=== PATIENT | male | born 1975 | race African-American/Black ===

== ENCOUNTER → 2019-02-14 | Day surgery (SDC) | payer OTHER, BC ==
[~2019-02-14] MED LIST: ASPIR 8181 MG PO; BRILINTA90 MG PO; CRESTOR10 MG PO; FENTANYL CITRATE/PF 100MCG/2 ML INJ ONE; HYOSCYAMINE SULFATE 0.5 MG/ML INJ ONE; KETAMINE HCL INJ 50 MG/ML 10 ML VIAL ONE; LIDOCAINE HCL 2% LOCAL INJ 5 ML SDV VIAL INJ ONE; MIDAZOLAM HCL 2 MG/2 ML VIAL ONE; PROPOFOL IV EMULSION 10 MG/ML 50 ML VIAL ONE
--- OUTSIDE RECORDS SUMMARY | 2019-02-14 12:50 | XMS REPORT | Summary of Care ---
Author Author [facility] Organization [facility] Address Unknown Phone Unavailable Encounter HQ Encntr_alianiket(FIN) [id number] Date(s): 01/31/19 - 01/31/19 [facility] [address] [place] [address]- [phone] Discharge Disposition: Home or Self Care Attending Physician: Juma Malcolm MD Vital Signs Most recent to 1 oldest [Reference Range]: Height 195.58 cm (01/31/19 9:55 AM) Weight 111.818 kg (01/31/19 9:55 AM) Body Mass Index 29.23 m2 (01/31/19 9:55 AM) Problem List Condition Effective Dates Status Health Status Informant Decreased Resolved libido(Confirmed) 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 Frequency: 1-2 times per week. Smoking Status Never smoker; Exposure to Tobacco Smoke None; Cigarette Smoking Last 365 Days No; Reg Smoking Cessation Counseling No entered on: 01/31/19 Assessment and Plan No data available for this section
--- OUTSIDE RECORDS SUMMARY | 2019-02-14 12:50 | XMS REPORT | Summary of Care ---
Author Author [facility] Organization [facility] Address Unknown Phone Unavailable Encounter HQ Encntr_alias(FIN) [id number] Date(s): 02/11/19 - 02/11/19 [facility] [address] [place] [phone]- [phone] Discharge Disposition: Home or Self Care Attending Physician: Juma Malcolm MD Vital Signs No data available for this section Problem List Condition Effective Dates Status Health Status Informant Decreased Resolved libido(Confirmed) 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
--- OUTSIDE RECORDS SUMMARY | 2019-02-14 12:50 | XMS REPORT | Summary of Care ---
Author Author [facility] Urology [facility] Organization [facility] Address Unknown Phone Unavailable Encounter HQ Encntr_alias(FIN) [id number] Date(s): 02/11/19 - 02/11/19 [facility] [address] [place] [phone]- [phone] Discharge Disposition: Home or Self Care Attending [...]
--- OUTSIDE RECORDS SUMMARY | 2019-02-14 12:50 | XMS REPORT | Summary of Care ---
Author Author [facility] Urology [facility] Organization [facility] Urology [facility] Address Unknown Phone Unavailable Encounter HQ Encntr_alias(FIN) [id number] Date(s): 02/05/19 - 02/05/19 [facility] U[facility] [address] [place] [phone]- [phone] Discharge Disposition: Home or Self Care Vital Signs No data available for this [...] Procedure Date Related Diagnosis Body Site Status Complex uroflowmetry (eg, calibrated 02/05/19 Completed electronic equipment) Measurement of post-voiding residual urine 02/05/19 Completed and/or bladder capacity by ultrasound, non-imaging Operation1 Completed 1repair fractured nose Social History Social History Type Response Alcohol Current, Type Beer, Liquor. Frequency: 1-2 times per week. Smoking Status Never smoker; Exposure to Tobacco Smoke None; Cigarette Smoking Last 365 Days No; Reg Smoking Cessation Counseling No entered on: 01/31/19 Assessment and Plan No data available for this section
--- OUTSIDE RECORDS SUMMARY | 2019-02-14 12:50 | XMS REPORT | Summary of Care ---
Author Author [facility] Organization [facility] Address Unknown Phone Unavailable Encounter HQ Lorraine(FIN) [id number] Date(s): 12/06/18 - 12/07/18 [facility] [address] [place] [address]- Discharge Disposition: Home or Self Care Attending Physician: Stanley Santoro MD Admitting Physician: Stanley Santoro MD Vital Signs 1 2 3 Most recent to oldest [Reference Range]: 195.58 cm (12/06/18 10:01 PM) 195.58 cm (12/06/18 6:01 PM) 195.58 cm (12/06/18 3:50 PM) Height 98.6 DegF (12/07/18 12:12 PM) 98.6 DegF (12/07/18 8:05 AM) 98.2 DegF (12/07/18 4:00 AM) Temperature Oral [96.4-99.1 DegF] 135/90 mmHg (12/07/18 3:30 PM) 123/75 mmHg (12/07/18 2:00 PM) 139/88 mmHg (12/07/18 12:00 PM) Blood Pressure [90-140/60-90 mmHg] 17 BRMIN (12/07/18 3:30 PM) 21 BRMIN *HI* (12/07/18 2:00 PM) 15 BRMIN (12/07/18 12:00 PM) Respiratory Rate [14-20 BRMIN] 66 bpm (12/06/18 3:50 PM) Peripheral Pulse Rate [60-100 bpm] 113.003 kg (12/06/18 10:01 PM) 111.818 kg (12/06/18 6:01 PM) 115 kg (12/06/18 3:50 PM) Weight 29.54 m2 (12/06/18 10:01 PM) 29.23 m2 (12/06/18 6:01 PM) 30.06 m2 (12/06/18 3:50 PM) Body Mass Index Problem List Condition Effective Dates Status Health Status Informant Tumor Active finding(Confirmed) Allergies, Adverse Reactions, Alerts Substance Reaction Severity Status NKDA Active Medications aspirin 81 mg, 1 tab, Route: PO, Drug form: ECTAB, Daily, Dosing Weight 111.818, kg, Sta rt date: 12/07/18 9:00:00 PLASTIC ROLLER, Duration: 30 day, Stop date: 01/05/19 9:00:00 CDT Notes: Do not crush or chew.(Same As: Ecotrin) Start Date: 12/07/18 Stop Date: 12/07/18 Status: Discontinued aspirin 81 mg tablet, enteric coated 81 mg=1 tab, PO, Daily, # 90 tab, 3 Refill(s) Start Date: 12/07/18 Stop Date: 12/02/19 Status: Ordered Brilinta (ticagrelor) 90 mg, 1 tab, Route: PO, Drug form: TAB, BID, Dosing Weight 115, kg, Start date: 12/07/18 9:00:00 PLASTIC ROLLER, Duration: 30 day, Stop date: 01/05/19 17:00:00 CDT Notes: (Same as: Brilinta) Start Date: 12/07/18 Stop Date: 12/07/18 Status: Discontinued Heparin - one time bolus for ACS 4,000 unit, 4 mL, Route: IVP, Drug form: INJ, ONCE, Dosing Weight 115, kg, Prior ity: STAT, Start date: 12/06/18 17:32:00 PLASTIC ROLLER, Stop date: 12/06/18 17:32:00 PLASTIC ROLLER Start Date: 12/06/18 Stop Date: 12/06/18 Status: Completed Heparin 30 unit/kg Bolus (Heparin Dosing Weight) Route: IVP, PRN, 3,000 unit, 3 mL, Drug form: INJ, PRN, Heparin Protocol, Start date: 12/06/18 17:32:00 PLASTIC ROLLER Stop date: 01/05/19 18:31:00 CDT, 30 day Start Date: 12/06/18 Stop Date: 12/06/18 Status: Discontinued Heparin 60 unit/kg Bolus (Heparin Dosing Weight) Route: IVP, PRN, 6,000 unit, 6 mL, Drug form: INJ, PRN, Heparin Protocol, Start date: 12/06/18 17:32:00 PLASTIC ROLLER Stop date: 01/05/19 18:31:00 CDT, 30 day Start Date: 12/06/18 Stop Date: 12/06/18 Status: Discontinued heparin additive 25,000 unit [10 unit/kg/hr] + Premix Diluent Dextrose 5% 500 mL 500 mL, Rate: 19.9 ml/hr, Infuse over: 25.1 hr, Route: IV, Dosing Weight 99.5 kg , Total Volume: 500 mL, Start date: 12/06/18 17:32:00 PLASTIC ROLLER, Duration: 30 day, Sto p date: 01/05/19 17:31:00 CDT, 2.33, m2 Start Date: 12/06/18 Stop Date: 12/06/18 Status: Discontinued Lipitor 80 mg, 2 tab, Route: PO, Drug form: TAB, Daily, Dosing Weight 111.818, kg, Start date: 12/07/18 9:00:00 PLASTIC ROLLER, Duration: 30 day, Stop date: 01/05/19 9:00:00 CDT Notes: (Same as: Lipitor) Start Date: 12/07/18 Stop Date: 12/07/18 Status: Discontinued rosuvastatin 40 mg, 2 tab, Route: PO, Drug form: TAB, Bedtime, Dosing Weight 113.003, kg, Sta rt date: 12/07/18 21:00:00 PLASTIC ROLLER, Duration: 30 day, Stop date: 01/05/19 21:00:00 C DT Notes: Same as Crestor Start Date: 12/07/18 Stop Date: 12/07/18 Status: Canceled rosuvastatin 40 mg oral tablet 40 mg=1 tab, PO, Bedtime, # 90 tab, 3 Refill(s) Start Date: 12/06/18 Stop Date: 03/06/19 Status: Ordered Saline Flush 0.9% 10 mL, Route: IVP, Drug Form: INJ, Dosing Weight 115, kg, PRN, PRN Line Flush, S tart date: 12/06/18 16:00:00 PLASTIC ROLLER, Duration: 30 day, Stop date: 01/05/19 16:59:00 CDT Notes: (Same as: BD Posiflush) Start Date: 12/06/18 Stop Date: 12/07/18 Status: Discontinued ticagrelor 90 mg oral tablet 90 mg=1 tab, PO, BID, # 180 tab, 3 Refill(s) Start Date: 12/07/18 Stop Date: 12/02/19 Status: Ordered Results ELECTROLYTES 1 2 3 Most recent to oldest [Reference Range]: 139 mEq/L (12/06/18 4:02 PM) Sodium Lvl [135-145 mEq/L] 4.0 mEq/L (12/06/18 4:02 PM) Potassium Lvl [3.5-5.1 mEq/L] 106 mEq/L (12/06/18 4:02 PM) Chloride Lvl [95-109 mEq/L] 32 mEq/L (12/06/18 4:02 PM) CO2 [24-32 mEq/L] 5.0 mEq/L *LOW* (12/06/18 4:02 PM) AGAP [10.0-20.0 mEq/L] CHEM PANEL 1 2 3 Most recent to oldest [Reference Range]: 1.16 mg/dL (12/06/18 4:02 PM) Creatinine Lvl [0.50-1.40 mg/dL] 89 mL/min/1.73m2 1 *NA* (12/06/18 4:02 PM) eGFR 13 mg/dL (12/06/18 4:02 PM) BUN [7-22 mg/dL] 11 (12/06/18 4:02 PM) B/C Ratio [6-25] 89 mg/dL (12/06/18 4:02 PM) Glucose Lvl [70-99 mg/dL] 7.9 g/dL (12/06/18 4:02 PM) Total Protein [6.4-8.4 g/dL] 3.8 g/dL (12/06/18 4:02 PM) Albumin Lvl [3.5-5.0 g/dL] 4.1 g/dL (12/06/18 4:02 PM) Globulin [2.7-4.2 g/dL] 0.9 (12/06/18 4:02 PM) A/G Ratio [0.7-1.6] 8.7 mg/dL (12/06/18 4:02 PM) Calcium Lvl [8.5-10.5 mg/dL] 40 unit/L (12/06/18 4:02 PM) ALT [0-65 unit/L] 69 unit/L *HI* (12/06/18 4:02 PM) AST [0-37 unit/L] 85 unit/L (12/06/18 4:02 PM) Alk Phos [39-136 unit/L] 0.7 mg/dL (12/06/18 4:02 PM) Bili Total [0.2-1.3 mg/dL] 102 unit/L (12/06/18 4:02 PM) Lipase Lvl [73-393 unit/L] 1Result Comment: The eGFR is calculated using the CKD-EPI formula. In most young, healthy individuals the eGFR will be >90 mL/min/1.73m2. The eGFR declines with age. An eGFR of 60-89 may be normal in some populations, particularly the elderly, for whom the CKD-EPI formula has not been extensively validated. Use of the eGFR is not recommended in the following populations: Individuals with unstable creatinine concentrations, including patients and those with serious co-morbid conditions. Patients with extremes in muscle mass or diet. The data above are obtained from the National Kidney Disease Education Program ( NKDEP) which additionally recommends that when the eGFR is used in patients with extremes of body mass index for purposes of drug dosing, the eGFR should be mul tiplied by the estimated BMI. CARDIAC ENZYMES 1 2 3 Most recent to oldest [Reference Range]: 7.10 ng/mL 1 *CRIT* (12/06/18 4:02 PM) Troponin-I [0.00-0.40 ng/mL] 1Result Comment: Critical Result(s) called to ann rios RN at 12/06/2018 17:05 by . Read back OK. HEMATOLOGY 1 2 3 Most recent to oldest [Reference Range]: 8.4 K/CMM (12/06/18 5:46 PM) 8.4 K/CMM (12/06/18 5:46 PM) 7.8 K/CMM (12/06/18 4:02 PM) WBC [3.7-10.4 K/CMM] 5.26 M/CMM (12/06/18 5:46 PM) 5.21 M/CMM (12/06/18 5:46 PM) 5.31 M/CMM (12/06/18 4:02 PM) RBC [4.70-6.10 M/CMM] 14.4 g/dL (12/06/18 5:46 PM) 14.2 g/dL (12/06/18 5:46 PM) 14.7 g/dL (12/06/18 4:02 PM) Hgb [14.0-18.0 g/dL] 45.4 % (12/06/18 5:46 PM) 44.6 % (12/06/18 5:46 PM) 45.1 % (12/06/18 4:02 PM) Hct [42.0-54.0 %] 86.3 fL (12/06/18 5:46 PM) 85.6 fL (12/06/18 5:46 PM) 84.9 fL (12/06/18 4:02 PM) MCV [80.0-94.0 fL] 27.3 pg (12/06/18 5:46 PM) 27.3 pg (12/06/18 5:46 PM) 27.7 pg (12/06/18 4:02 PM) MCH [27.0-31.0 pg] 31.7 g/dL *LOW* (12/06/18 5:46 PM) 31.9 g/dL *LOW* (12/06/18 5:46 PM) 32.7 g/dL (12/06/18 4:02 PM) MCHC [32.0-36.0 g/dL] 13.5 % (12/06/18 5:46 PM) 13.6 % (12/06/18 5:46 PM) 13.5 % (12/06/18 4:02 PM) RDW [11.5-14.5 %] 9.3 fL (12/06/18 5:46 PM) 9.5 fL (12/06/18 5:46 PM) 9.5 fL (12/06/18 4:02 PM) MPV [7.4-10.4 fL] 158 K/CMM (12/06/18 5:46 PM) 163 K/CMM (12/06/18 5:46 PM) 171 K/CMM (12/06/18 4:02 PM) Platelet [133-450 K/CMM] 69.4 % (12/06/18 5:46 PM) 69.2 % (12/06/18 5:46 PM) 64.2 % (12/06/18 4:02 PM) Segs [45.0-75.0 %] 21.5 % (12/06/18 5:46 PM) 21.3 % (12/06/18 5:46 PM) 26.2 % (12/06/18 4:02 PM) Lymphocytes [20.0-40.0 %] 6.8 % (12/06/18 5:46 PM) 7.1 % (12/06/18 5:46 PM) 7.2 % (12/06/18 4:02 PM) Monocytes [2.0-12.0 %] 1.9 % (12/06/18 5:46 PM) 1.7 % (12/06/18 5:46 PM) 1.9 % (12/06/18 4:02 PM) Eosinophils [0.0-4.0 %] 0.4 % (12/06/18 5:46 PM) 0.7 % (12/06/18 5:46 PM) 0.5 % (12/06/18 4:02 PM) Basophils [0.0-1.0 %] 5.8 K/CMM (12/06/18 5:46 PM) 5.8 K/CMM (12/06/18 5:46 PM) 5.0 K/CMM (12/06/18 4:02 PM) Neutrophils # [1.5-8.1 K/CMM] 1.8 K/CMM (12/06/18 5:46 PM) 1.8 K/CMM (12/06/18 5:46 PM) 2.0 K/CMM (12/06/18 4:02 PM) Lymphocytes # [1.0-5.5 K/CMM] 0.6 K/CMM (12/06/18 5:46 PM) 0.6 K/CMM (12/06/18 5:46 PM) 0.6 K/CMM (12/06/18 4:02 PM) Monocytes # [0.0-0.8 K/CMM] 0.2 K/CMM (12/06/18 5:46 PM) 0.1 K/CMM (12/06/18 5:46 PM) 0.1 K/CMM (12/06/18 4:02 PM) Eosinophils # [0.0-0.5 K/CMM] 0.1 K/CMM (12/06/18 5:46 PM) Basophils # [0.0-0.2 K/CMM] 14.2 seconds (12/06/18 5:46 PM) PT [12.0-14.7 seconds] 1.12 (12/06/18 5:46 PM) INR [0.85-1.17] 28.1 seconds (12/06/18 5:46 PM) PTT [22.9-35.8 seconds] Immunizations Not Given Vaccine Date Status Refusal [...] Reg Smoking Cessation Counseling No entered on: 12/06/18 Assessment and Plan Extracted from: Title: Progress Note * Author: Cornel España MD Date: 12/07/18 Impression and Plan 1. NSTEMI -continue aspiring, ticagrelor, rosuvastatin -no beta alcides due to bradycardia, EF preserved so no DAVID needed Extracted from: Title: Clinical Document Author: Stanley Santoro MD Date: 12/07/18 Name: RM: 357 - 1P, SE [id number] (: 1975) M Admission Date: 12/06/2018 Discharge Date: 12/07/2018 Diagnoses: DIAGNOSES & PROBLEMS 1. Acute myocardial infarction. Non-STEMI 2. Chest pain. 3. Hyperlipidemia. 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 Progress Note - Daily [facility] Completed: Nov, 16:00 by Stanley Santoro MD RM: 357 - 1P, SE BRAD [id number] (: 1975) M Attending: Stanley Santoro MDPhone: Service: Internal Medicine Reason for Admission: NSTEMI, ACUTE CHEST PAIN, LIGHTHEADNESS Working DRG: Code status: None Specified=FULL CODECurrent diet: Isolation: No Isolation/Standard Precautions Allergies: NKDA SUBJECTIVE Doing better ,no chest pain or sob,no nause or vomiting, no neurologic symptoms OBJECTIVE 24hr Labs 12/06 1746 WBC8.4 RBC5.26 Hgb14.4 Hct45.4 MCV86.3 MCH27.3 MCHC31.7 L RDW13.5 Zmkevfjt481 MPV9.3 Segs69.2 Monocytes7.1 Vmlkargjghm41.3 Eosinophils1.7 Basophils0.7 Neutrophils #5.8 Lymphocytes #1.8 Monocytes #0.6 Eosinophils #0.1 Basophils #0.1 WBC8.4 RBC5.21 Hgb14.2 Hct44.6 MCV85.6 MCH27.3 MCHC31.9 L RDW13.6 Gvchbdij903 MPV9.5 Segs69.4 Monocytes6.8 Qirmcektbnt43.5 Eosinophils1.9 Basophils0.4 Neutrophils #5.8 Lymphocytes #1.8 Monocytes #0.6 Eosinophils #0.2 PT14.2 INR1.12 PTT28.1 12/06 1602 Sodium Mik416 Potassium Lvl4.0 Chloride Qqk373 CO232 AGAP5.0 L Glucose Lvl89 Creatinine Lvl1.16 BUN13 B/C Ratio11 Total Protein7.9 Albumin Lvl3.8 Globulin4.1 A/G Ratio0.9 Calcium Lvl8.7 ALT40 AST69 H Alk Phos85 Bili Total0.7 eGFR89 Lipase Fli468 Troponin-I7.10 C WBC7.8 RBC5.31 Hgb14.7 Hct45.1 MCV84.9 MCH27.7 MCHC32.7 RDW13.5 Jfkmtaly037 MPV9.5 Segs64.2 Monocytes7.2 Jckouzrsgkc95.2 Eosinophils1.9 Basophils0.5 Neutrophils #5.0 Lymphocytes #2.0 Monocytes #0.6 Eosinophils #0.1 Levy still necessary (Yes/No): Line still necessary (Yes/No): VitalsTmp(F)[id number] 12/07 14:00----[id number]--- 12/07 12:1298.6 12/07 12:00----[id number]--- 12/07 10:00----[id number]--- 12/07 08:0598.804370/[id number]--- 24 Hr Tmax: 98.6F (37.00c) at 12/07 12:12Vital Signs are the last 5 in the past 48 hours. DateWt(kg)Wt(lb)Ht(cm)Ht(in)Method 12/06 (initial)115.00 253.00Estimated 12/06195.58 77.00Stated I&ORecordInOutBal 12/823hr Tot 0 0 0 12/723hr Tot 0 650 -650 Medications (5) Active Scheduled Meds (3): 12/07/18 aspirin 81 mg PO Daily 12/07/18 rosuvastatin 40 mg PO Bedtime 12/07/18 ticagrelor (Brilinta (ticagrelor)) 90 mg PO BID Unscheduled Meds: None PRN Meds (1): 12/06/18 sodium chloride (Saline Flush 0.9%) 10 mL IVP PRN One Time Meds (1): 12/06/18 (not done) heparin (Heparin - one time bolus for ACS) 4,000 unit IVP ONCE Continuous Infusions: None ASSESSMENT & EXAM GENERAL Alert and oriented x 3. no obvious distress HEENT: PERRLA. EOMI. Normocephalic, Atraumatic NECK: No jugular venous distention, no bruit. Thyroid is normal. LUNGS: Clear to auscultation and percussion. HEART: RRR. S1, S2 is normal. ABDOMEN: Positive bowel sounds, no organomegaly. No tenderness appreciated EXTREMITIES: No tenderness. Lower limbs, no edema and no cyanosis. NEUROLOGIC: Grossly intact sensory and motor. SKIN: no rashes noted PLAN & TREATMENT d/c home DIAGNOSES & PROBLEMS Ready for Discharge (Yes/No)? TEACHING ATTESTATION Extracted from: Title: Cardiac Catheterization Note Author: Cornel España MD Date: 12/06/18 Cardiology Catheterization Report Attending: Stanley Santoro MDPhone: Service: Internal Medicine Code status: None Specified=FULL CODE Reason for Admission: NSTEMI, ACUTE CHEST PAIN, LIGHTHEADNESS Working DRG: Isolation: No Isolation/Standard Precautions Consulting Physicians: Stanley Santoro MDOffice: Service: Medicine, General Medicine Cornel España MDOffice: Service: Cardiology Indications: NSTEMI Pre-sedation Assessment: Medical history, social history and previous experience with anesthesia was reviewed as documented in the preoperative medical record. Results of relevant diagnostic studies reviewed. Planned choice of anesthesia, risks, complications, benefits, and alternatives discussed. Patient deemed appropriate candidate for planned choice of anesthesia. Consent: The benefits, risks, complications and alternatives to the procedure were discussed with patient and informed consent was obtained from patient or their surrogate. Medications: Please see nursing notes for medications administered during the procedure. Procedure: Patient was brought to the cardiac catheterization laboratory in a fasting state. RIGHT wrist was prepped and draped in a sterile fashion. 1% lidocaine was used to infiltrate the right wrist over the radial artery. A 5 Fr sheath was placed in the right radial artery using the Seldinger technique. Coronary angiography was performed using a GTI preformed catheter to engage both the RCA and LCA. Multiple orthogonal views were obtained of each coronary artery. Left heart catheterization was performed using a GTI catheter. All catheters were removed over a guide wire. The access site was closed using TR band. The case ended without any complications. Estimated blood loss approximately 20 mL. Findings: LMCA: Large caliber. Normal. LAD: Large vessel. Goes to the apex. Proximal LAD with significant ectasia and slow flow. No obstructive lesions. No thrombus. LCX: Large, non dominant vessel. 1 significant OM branches. No significant coronary artery disease. RCA: Large dominant RCA. Medium sized rPDA and rPL systems. Ectasia in proximal and mid RCA with slow flow. There may be a small thrombus in distal rPL branch. LVEDP: 14 Complications: None Specimen Removed: None Implants: None Estimated Blood Loss: 20 mL. Recommendations: 1. usual post PCI care until TR band removal. 2. continue optimal medical therapy and risk factor control. 3. call the office for follow up in 2 weeks post procedure. Extracted from: Title: Cardiology History and Author: Cornel España MD Date: 12/06/18 Physical [facility] History and Physical Note Attending: Aniket Hope MDPhone: Service: Emergency Medicine Code status: None Specified=FULL CODE Reason for Admission: ABNORMAL LABS Working DRG: Isolation: None Documented Consulting Physicians: Cornel España MDOffice: Service: Cardiology Chief Complaint: chest pain HPI: 43 yo with family hx of CAD but otherwise healthy. He presents with feeling "elephant sitting on his chest" starting Monday night, had episodes on monday as well. Last episode this morning. Currently chest discomfort free. Review of Systems: 10 point review of system was performed and was negative other than mentioned in HPI. Past Medical History: No qualifying data available Family History: Father: Heart attack; High blood pressure; Stroke Social History: Alcohol Details: Current, Type Beer, Liquor. Frequency: 1-2 times per week. Tobacco Details: Use: Never smoker. Tobacco smoke exposure: None. Did the Patient Smoke Cigarettes Anytime During the Last 365 Days? No. Cessation Counseling Provided? No. Exam: VitalsTmp(F)[id number] 12/06 17:20----[id number]--- 12/06 15:[id number]--- 24 Hr Tmax: 98.1F (36.72c) at 12/06 15:50Vital Signs are the last 5 in the past 48 hours. DateWt(kg)Wt(lb)Ht(cm)Ht(in)Method 12/06 (initial)115.00 253.00Estimated 12/06195.58 77.00Stated No I & O Data Available Eyes: conjunctivae clear. ENMT: normal mucosa. No pallor or bleeding. Neck: No jugular venous distention. MSK: Normal muscle tone and strength. No atrophy or abnormal movements. Extremities: No clubbing or cyanosis. Skin: No venous stasis changes or ulcers. General: well developed. well nourished. obese. Cardiovascular: PMI non displaced. regular. S1 and S2. No murmurs, rubs or gallops. Normal carotid pulses. Palpable femoral pulses. Palpable pedal pulses. No peripheral edema or varicosities. Respiratory: No respiratory distress. Clear to auscultation bilaterally. Abdomen: soft, non-tender, no masses. No hepato- or splenomegaly. Neuro/Psych: Alert and oriented to person, place and time. Normal affect. Allergies: NKDA Medications (6) Active Scheduled Meds (1): 12/07/18 ticagrelor (Brilinta (ticagrelor)) 180 mg PO BID Unscheduled Meds: None PRN Meds (3): 12/06/18 heparin (Heparin 60 unit/kg Bolus (Heparin Dosing Weight)) 6,000 unit IVP PRN 12/06/18 heparin (Heparin 30 unit/kg Bolus (Heparin Dosing Weight)) 3,000 unit IVP PRN 12/06/18 sodium chloride (Saline Flush 0.9%) 10 mL IVP PRN One Time Meds (1): 12/06/18 (Ordered) heparin (Heparin - one time bolus for ACS) 4,000 unit IVP ONCE Continuous Infusions (1): 12/06/18 heparin 25,000 unit [10 unit/kg/hr] + Premix Diluent Dextrose 5% 500 mL (heparin additive 25,000 unit [10 unit/kg/hr] + Premix Diluent Dextrose 5% 500 mL) 500 mL 19.9 ml/hr Labs (Last four charted values) WBC 7.8(DEC 06) Hgb 14.7(DEC 06) Hct 45.1(DEC 06) Plt 171(DEC 06) Na 139(DEC 06) K 4.0(DEC 06) CO2 32(DEC 06) Cl 106(DEC 06) Cr 1.16(DEC 06) BUN 13(DEC 06) Glucose Random 89(DEC 06) Ca 8.7(DEC 06) Troponin C 7.10(DEC 06) Imaging: Reviewed. Telemetry: NSR. ECG: NSR. Anterolateral ST-T changes concerning for LAD ischemia. Echo: none Stress: none Cath: none Assessment: Chest pain, unspecified (R07.9) Dizziness and giddiness (R42) Non-ST elevation (NSTEMI) myocardial infarction (I21.4) Plan: -high risk ACS, Wellen's on ECG concerning for LAD ischemia -asa, heparin, ticagrelor, atorvastatin -proceed with urgent coronary angiography
--- OUTSIDE RECORDS SUMMARY | 2019-02-14 12:50 | XMS REPORT | CCD ---
Author Author Auto Generated Organization [facility] Address Unknown Phone Unavailable Care Team Providers Care Admin Prog Coord Name Role Phone Abe Chavez CP Allergies, Adverse Reactions, Alerts Substance Reaction Status NKDA Active Medications Medication Instructions Start Date End Date Status morphine Sulfate 2 mg, 1 mL, Route: IV, Drug form: 09/19/2012 09/19/2012 Discontinued INJ, Q2H, PRN Pain, Start date: 09/19/12 0:31:00, Duration: 30 day, Stop date: 10/19/12 0:30:00 atropine 0.5 mg, 5 mL, Route: IVP, Drug 09/19/2012 09/19/2012 Discontinued form: INJ, PRN, PRN Bradycardia, Start date: 09/19/12 0:30:00, Duration: 30 day, Stop date: 10/19/12 0:29:00 Lovenox 100 mg, 1 mL, Route: SUB-Q, Drug 09/18/2012 09/18/2012 Completed form: INJ, ONCE, Dosing Weight 104.545, kg, Priority: STAT, Start date: 09/18/12 23:44:00, Stop date: 09/18/12 23:44:00 nitroglycerin 0.4 mg, 1 tab, Route: SL, Drug 09/18/2012 09/19/2012 Discontinued form: TAB, Q5Min, Dosing Weight 104.545, kg, PRN Chest Pain, (Hold if SBP <=90 mmHg or if <=100mmHg with symptomatic dizziness), Start date: 09/18/12 20:24:00, Duration: 3 doses or times, Stop date: Limited # of times aspirin 325 mg 325 mg, 1 tab, Route: PO, Drug 09/18/2012 09/18/2012 Completed tablet form: TAB, ONCE, Dosing Weight 104.545, kg, Priority: STAT, Start date: 09/18/12 20:24:00, Stop date: 09/18/12 20:24:00 Saline Flush 0.9% 5 ml, Route: IVP, Drug Form: INJ, 09/18/2012 09/19/2012 Discontinued Dosing Weight 104.545, kg, PRN, PRN Line Flush, Start date: 09/18/12 20:24:00, Duration: 24 hr, Stop date: 09/19/12 20:23:00 Vital Signs Most recent to oldest [Reference Range]: 1 2 3 Height 195.58 cm (09/18/2012 20:05:00) Temperature Oral [96.4-99.1 DegF] 98.1 DegF (09/19/2012 12:00:00) 97.8 DegF (09/19/2012 08:00:00) 97.7 DegF (09/19/2012 04:00:00) Systolic Blood Pressure [90-140 mmHg] 119 mmHg (09/19/2012 12:00:00) 121 mmHg (09/19/2012 08:00:00) 117 mmHg (09/19/2012 04:00:00) Diastolic Blood Pressure [60-90 mmHg] 79 mmHg (09/19/2012 12:00:00) 78 mmHg (09/19/2012 08:00:00) 67 mmHg (09/19/2012 04:00:00) Respiratory Rate [14-20 BRMIN] 20 BRMIN (09/19/2012 12:00:00) 8 BRMIN *LOW* (09/19/2012 08:55:00) 20 BRMIN (09/19/2012 08:00:00) Peripheral Pulse Rate [60-100 bpm] 62 bpm (09/19/2012 12:00:00) 60 bpm (09/19/2012 08:00:00) 62 bpm (09/19/2012 04:00:00) Weight 104.545 kg (09/18/2012 20:05:00) Results CHEMISTRY Most recent to oldest [Reference Range]: 1 2 3 Sodium Lvl [135-145 mEq/L] 143 mEq/L (09/18/2012 20:52:00) Potassium Lvl [3.5-5.1 mEq/L] 4.1 mEq/L (09/18/2012:52:00) Chloride Lvl [95-109 mEq/L] 104 mEq/L (09/18/2012:52:00) CO2 [24-32 mEq/L] 31 mEq/L (09/18/2012:52:00) AGAP [10.0-20.0 mEq/L] 12.1 mEq/L (09/18/2012:52:00) Creatinine Lvl [0.5-1.4 mg/dL] 1.0 mg/dL (09/18/2012:52:00) eGFR 111 mL/min/1.73m2 1 *NA* (09/18/2012:52:00) BUN [7-22 mg/dL] 16 mg/dL (09/18/2012:52:00) B/C Ratio [6-25] 16 (09/18/2012:52:00) Glucose Lvl [70-99 mg/dL] 95 mg/dL 2 (09/18/2012:52:00) Total Protein [6.4-8.4 g/dL] 8.0 g/dL (09/18/2012:52:00) Albumin Lvl [3.5-5.0 g/dL] 4.0 g/dL (09/18/2012:52:00) Globulin [2.0-4.0 g/dL] 4.0 g/dL (09/18/2012:52:00) A/G Ratio [0.7-1.6] 1.0 (09/18/2012:52:00) Calcium Lvl [8.5-10.5 mg/dL] 9.0 mg/dL (09/18/2012:52:00) ALT [0-65 unit/L] 57 unit/L (09/18/2012:52:00) AST [0-37 unit/L] 31 unit/L (09/18/2012:52:00) Alk Phos [39-136 unit/L] 87 unit/L (09/18/2012:52:00) Bili Total [0.2-1.3 mg/dL] 0.5 mg/dL (09/18/2012:52:00) Total CK [12-191 unit/L] 181 unit/L (09/19/2012 10:38:00) 185 unit/L (09/19/2012 03:33:00) 224 unit/L *HI* (09/18/2012 20:52:00) CK MB [0.5-3.6 ng/mL] 0.5 ng/mL (09/19/2012 10:38:00) 0.7 ng/mL (09/19/2012 03:33:00) <0.5 ng/mL (09/18/2012 20:52:00) CK MB Index [0.0-2.5] 0.3 (09/19/2012 10:38:00) 0.4 (09/19/2012 03:33:00) <0.2 (09/18/2012 20:52:00) Troponin-I [0.00-0.40 ng/mL] <0.02 ng/mL (09/19/2012 10:38:00) <0.02 ng/mL (09/19/2012 03:33:00) 0.02 ng/mL (09/18/2012 20:52:00) CHD Risk [4.00-7.30] 10.35 *HI* (09/19/2012 10:38:00) Chol [120-200 mg/dL] 352 mg/dL *HI* (09/19/2012 10:38:00) Trig [0-200 mg/dL] 100 mg/dL (09/19/2012 10:38:00) HDL [>=35 mg/dL] 34 mg/dL *LOW* (09/19/2012 10:38:00) LDL [0-129 mg/dL] 298 mg/dL *HI* (09/19/2012 10:38:00) 1Result Comment: The eGFR is calculated using [...] be mul tiplied by the estimated BMI. 2Interpretive Data: Adult reference range values reflect the clinical guidelines of the [place] [employer]. HEMATOLOGY Most recent to oldest [Reference Range]: 1 2 3 WBC [3.7-10.4 K/CMM] 7.1 K/CMM (09/18/2012 20:52:00) RBC [4.70-6.10 M/CMM] 5.50 M/CMM (09/18/2012 20:52:00) Hgb [14.0-18.0 g/dL] 15.3 g/dL (09/18/2012:52:00) Hct [42.0-54.0 %] 46.6 % (09/18/2012 20:52:00) MCV [80.0-94.0 fL] 84.8 fL (09/18/2012:52:00) MCH [27.0-31.0 pg] 27.9 pg (09/18/2012 20:52:00) MCHC [32.0-36.0 g/dL] 32.9 g/dL (09/18/2012:52:00) RDW [11.5-14.5 %] 13.0 % (09/18/2012 20:52:00) Platelet [133-450 K/CMM] 186 K/CMM (09/18/2012 20:52:00) MPV [7.4-10.4 fL] 9.0 fL (09/18/2012 20:52:00) Segs [45.0-75.0 %] 56.3 % (09/18/2012 20:52:00) Lymphocytes [20.0-40.0 %] 33.1 % (09/18/2012:52:00) Monocytes [2.0-12.0 %] 5.5 % (09/18/2012 20:52:00) Eosinophils [0.0-4.0 %] 4.7 % *HI* (09/18/2012:52:00) Basophils [0.0-1.0 %] 0.4 % (09/18/2012 20:52:00) Segs-Bands # [1.5-8.1 K/CMM] 4.0 K/CMM (09/18/2012 20:52:00) Lymphocytes # [1.0-5.5 K/CMM] 2.3 K/CMM (09/18/2012 20:52:00) Monocytes # [0.0-0.8 K/CMM] 0.4 K/CMM (09/18/2012 20:52:00) Eosinophils # [0.0-0.5 K/CMM] 0.3 K/CMM (09/18/2012 20:52:00) Basophils # [0.0-0.2 K/CMM] 0.0 K/CMM (09/18/2012 20:52:00) PT [12.0-14.7 seconds] 13.7 seconds (09/18/2012 20:52:00) INR [0.85-1.17] 1.03 3 (09/18/2012 20:52:00) D-Dimer 0.26 ug/mL FEU 4 *NA* (09/18/2012 20:52:00) PTT [22.9-35.8 seconds] 30.2 seconds 5 (09/18/2012 20:52:00) 3Interpretive Data: RECOMMENDED RANGES FOR PROTIME INR: 2.0-3.0 for most medical and surgical thromboembolic states. 2.5-3.5 for artificial heart valves and recurrent embolism. INR SHOULD BE USED ONLY FOR PATIENTS ON STABLE ANTICOAGULANT THERAPY. 4Interpretive Data: In DIC, quantitative D-Dimer is generally greater than 0.66 ug/mL FEU. Values of quantitative D-Dimer less than 0.40 ug/mL FEU have been reported to be associated with a low probability of deep vein thrombosis/pulmonary embolism. This test alone should not be used to rule out DVT/PE. 5Interpretive Data: Heparin Therapeutic Range: 57 - 92 Seconds
--- OUTSIDE RECORDS SUMMARY | 2019-02-14 12:51 | XMS REPORT ---
Author Author Smith Carr [employer] Address Unknown Phone Unavailable Care Team Providers Care Leadership Coach Name Role Phone Smith Carr CP Unavailable Allergies, Adverse Reactions, Alerts Substance Reaction Event Type N.K.D.A. Info Not Available Non Drug Allergy Problems Problem Type Condition Code Onset Dates Condition Status Assessment Erectile dysfunction N52.9 Active Assessment Routine physical examination Z00.00 Active Assessment Hypogonadism in male E29.1 Active Problem Impaired left ventricular relaxation I51.9 Active Problem Familial hypercholesterolemia E78.01 Active Problem LVH (left ventricular hypertrophy) I51.7 Active Problem Erectile dysfunction N52.9 Active Problem Hypogonadism in male E29.1 Active Problem Hypoglycemia E16.2 Active Problem Onychomycosis B35.1 Active Assessment LVH (left ventricular hypertrophy) I51.7 Active Assessment Familial hypercholesterolemia E78.01 Active Assessment Abnormal ECG R94.31 Active Assessment Screening for prostate cancer Z12.5 Active Assessment Herpes simplex B00.9 Active Assessment Hypoglycemia E16.2 Active Medications Medication Code System Code Instructions Start Date End Date Status Dosage Needle (Disp) NDC 0 18G X 1" intramuscularly every 2 weeks May 21, 2018 Active use to draw testosterone Rosuvastatin Calcium ND 50786388480 40 mg Orally qd LAST REFILL May 17, 2018 Active 1 tablet Testosterone Cypionate ND 92599582398 200 MG/ML Intramuscular every two weeks Nov 12, 2015 Active 1 ml Ezetimibe [facility] 41792543438 10 mg Orally Once a day Jun 28, 2017 Active 1 tablet Syringe ND 58134971365 22G X 1-1/2 intramuscularly every two weeks to give testosterone Nov 12, 2015 Active use to give testosterone injection Valtrex ND 41486499835 500 mg Orally three times a day (tid) May 18, 2018 May 28, 2018 Active 1 tablet Needle (Disp) ND 59322737954 20G X 1 intramuscularly every two weeks to draw testosterone Nov 12, 2015 Active as directed Vital Signs Date/Time: May 18, 2018 BMI 27.63 Index Weight 227 lbs Height 76 in Temperature 98.1 F Cardiac Monitoring Heart Rate 69 /min Blood Pressure Diastolic 92 mm Hg Blood Pressure Systolic 124 mm Hg Results No Known Results Summary Purpose eClinicalWorks Submission
--- OUTSIDE RECORDS SUMMARY | 2019-02-14 12:51 | XMS REPORT ---
Author Author Geeta Romero Organization [employer] Address Unknown Phone Unavailable Care Team Providers Care Commercial Management Accountant Name Role Phone Geeta Romero CP Unavailable Allergies, Adverse Reactions, Alerts Substance Reaction Event Type N.K.D.A. Info Not Available Non Drug Allergy Problems Problem Type Condition Code Onset Dates Condition Status Assessment Familial hypercholesterolemia E78.01 Active Assessment Hypogonadism in male E29.1 Active Assessment Erectile dysfunction N52.9 Active Problem LVH (left ventricular hypertrophy) I51.7 Active Problem Impaired left ventricular relaxation I51.9 Active Problem Familial hypercholesterolemia E78.01 Active Problem Hypogonadism in male E29.1 Active Problem Erectile dysfunction N52.9 Active Problem Hypoglycemia E16.2 Active Problem Onychomycosis B35.1 Active Assessment Impaired left ventricular relaxation I51.9 Active Assessment LVH (left ventricular hypertrophy) I51.7 Active Assessment Elevated blood pressure reading R03.0 Active Medications Medication Code System Code Instructions Start Date End Date Status Dosage Needle (Disp) [facility] 8080-998790 20G X 1 intramuscularly every two weeks to draw testosterone Nov 12, 2015 Active as directed Testosterone Cypionate [facility] [address]-67 200 MG/ML Intramuscular every two weeks Nov 12, 2015 Active 1 ml Syringe [facility] 8287-847462 22G X 1-1/2 intramuscularly every two weeks to give testosterone Nov 12, 2015 Active as directed Pravastatin Sodium [facility] [address]-60 40 MG Orally Once a day(MUST SEE BEFORE NEXT REFILL) Jun 19, 2017 Active 1 tablet Sildenafil Citrate [facility] [address]-03 50 MG Orally Once a day Jun 23, 2017 Jul 23, 2017 Active 1 tablet as needed Vital Signs Date/Time: Jun 23, 2017 BMI 29.70 Index Weight 244 lbs Height 76 in Cardiac Monitoring Heart Rate 66 /min Blood Pressure Diastolic 88 mm Hg Blood Pressure Systolic 134 mm Hg Results No Known Results Summary Purpose eClinicalWorks Submission
--- OUTSIDE RECORDS SUMMARY | 2019-02-14 12:51 | XMS REPORT ---
Author Author Keyla Bauer [facility] [employer] Address Unknown Phone Unavailable Care Team Providers Care Discharge Planner Name Role Phone Keyla Bauer Unavailable Encounters Encounter Location Date [address] [facility] February 24, [address] [facility] March 02, [address] [facility] March 03, [address] [facility] March 03, [address] [facility] Nov 13, [address] [facility] Nov 12, [address] 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 2 February 24, 2016 Last Colonoscopy: . never February 24, 2016 Tobacco Use: . Are you a: never smoker February 24, 2016 Flu Vaccine: . 2013February 24, 2016 Use of recreational / street drugs? . Answer: No February 24, 2016 Do you have pets? . Status: Yes, Type: dog(s) February 24, 2016 Ethnicity . Status , Is bolivian your primary language? Yes February 24, 2016 Marital Status: . Keeley Leal February 24, 2016 Caffeine intake? . Status: No February 24, 2016 Do you exercise? . Answer: Yes, Type: cardio, running basketball February 24, 2016 Depression Screening: . negative February 24, 2016 Do you drink alcohol? . Status: Yes, Type: Socially February 24, 2016 Summary Purpose eClinicalWorks Submission
--- OUTSIDE RECORDS SUMMARY | 2019-02-14 12:51 | XMS REPORT ---
Author Author Sarah Beth Prieto [facility] [employer] Address Unknown Phone Unavailable Care Team Providers Care Metal Tile Lather Name Role Phone Sarah Beth Prieto CP Unavailable Encounters Encounter Location Date 3 MONTH FOLLOW UP [facility] February 24, 2016 Unknown [facility] March 02, 2016 Unknown [facility] Nov 13, 2015 fu on labs [facility] Nov 12, 2015 [place] [facility] Nov 13, 2015 Problems Problem Type Condition ICD-9 Code Onset Dates Condition Status Assessment Hypogonadism in male E29.1 Active Problem Hyperlipidemia E78.5 Active Problem Onychomycosis B35.1 Active Problem Elevated liver enzymes R74.8 Active Problem Hypoglycemia 251.2 Active Problem Elevated ALT measurement 790.4 Active Problem Hypogonadism in male E29.1 Active Problem Erectile dysfunction N52.9 Active Social History Social History Element Qualifiers Date Reported 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 2 February 24, 2016 Last Colonoscopy: . never February 24, 2016 Tobacco Use: . Are you a: never smoker February 24, 2016 Flu Vaccine: . 2014 February 24, 2016 Use of recreational / street drugs? . Answer: No February 24, 2016 Do you have pets? . Status: Yes, Type: dog(s) February 24, 2016 Ethnicity . Status , Is kiswahili your primary language? Yes February 24, 2016 [...]
--- OUTSIDE RECORDS SUMMARY | 2019-02-14 12:51 | XMS REPORT ---
Author Author Geeta Romero [facility] eClinicalWorks Address Unknown Phone Unavailable Care Team Providers Care Business Representative Name Role Phone Geeta Romero CP Unavailable Allergies No Known Allergies Problems Problem Type Condition Code Onset Dates Condition Status Problem Impaired left ventricular relaxation I51.9 Active Problem Familial hypercholesterolemia E78.01 Active Problem LVH (left ventricular hypertrophy) I51.7 Active Problem Erectile dysfunction N52.9 Active Problem Hypogonadism in male E29.1 Active Problem Hypoglycemia E16.2 Active Problem Onychomycosis B35.1 Active Medications No Known Medications Results No Known Results Summary Purpose eClinicalWorks Submission
--- OUTSIDE RECORDS SUMMARY | 2019-02-14 12:51 | XMS REPORT ---
Author Author Geeta Romero Organization [employer] Address Unknown Phone Unavailable Care Team Providers Care Systems Test Engineer Name Role Phone Geeta Romero CP Unavailable Allergies No Known Allergies Problems Problem Type Condition Code Onset Dates Condition Status Assessment Familial hypercholesterolemia E78.01 Active Problem Impaired left ventricular relaxation I51.9 Active Problem Familial hypercholesterolemia E78.01 Active Problem LVH (left ventricular hypertrophy) I51.7 Active Problem Erectile dysfunction N52.9 Active Problem Hypogonadism in male E29.1 Active Problem Hypoglycemia E16.2 Active Problem Onychomycosis B35.1 Active Medications Medication Code System Code Instructions Start Date End Date Status Dosage Viagra [facility] 73869993564 50 mg Orally Once a day Jul 24, 2017 Aug 23, 2017 Active 1 tablet as needed Rosuvastatin Calcium [facility] 26760037520 40 mg Orally Once a day Jun 28, 2017 Active 1 tablet Ezetimibe [facility] 92686263817 10 mg Orally Once a day Jun 28, 2017 Active 1 tablet Results No Known Results Summary Purpose eClinicalWorks Submission
--- OUTSIDE RECORDS SUMMARY | 2019-02-14 12:51 | XMS REPORT ---
Author Author Sejal Pacheco Organization [employer] Address Unknown Phone Unavailable Care Team Providers Care Ship Steward Name Role Phone Sejal Pacheco CP Unavailable Allergies, Adverse Reactions, Alerts Substance Reaction Event Type N.K.D.A. Info Not Available Non Drug Allergy Problems Problem Type Condition Code Onset Dates Condition Status Problem Onychomycosis B35.1 Active Problem Hypogonadism in male E29.1 Active Problem Erectile dysfunction N52.9 Active Problem Hyperlipidemia E78.[address] elevation myocardial infarction (STEMI), unspecified artery I21.3 Active Problem Coronary artery disease, angina presence unspecified, unspecified vessel or lesion type, unspecified whether [place] or transplanted heart I25.10 Active Problem Impaired left ventricular relaxation I51.9 Active Problem Hypoglycemia E16.2 Active Problem LVH (left ventricular hypertrophy) I51.7 Active Problem Familial hypercholesterolemia E78.01 Active Assessment Coronary artery disease, angina presence unspecified, unspecified vessel or lesion type, unspecified whether [place] or transplanted heart I25.10 Active Assessment RUQ abdominal pain R10.11 Active Assessment Hematuria, unspecified type R31.9 Active Assessment Hyperlipidemia E78.5 Active Assessment Melena K92.1 Active Medications Medication Code System Code Instructions Start Date End Date Status Dosage Aspirin [facility] 43386126268 81 MG Orally Once a day Active 1 tablet Rosuvastatin Calcium [facility] 83446531572 40 MG Active TAKE 1 TABLET BY MOUTH DAILY Brilinta [facility] [address]-70 Orally Twice a day Active 1 tablet Ondansetron [facility] 38323618023 8 MG Orally Twice a day January 29, 2019 Active 1 tablet on the tongue and allow to dissolve Vital Signs Date/Time: February 05, 2019 BMI 30.31 Index Weight 249 lbs Height 76 in Cardiac Monitoring Heart Rate 72 /min Blood Pressure Diastolic 78 mm Hg Blood Pressure Systolic 110 mm Hg Results No Known Results Summary Purpose eClinicalWorks Submission
--- OUTSIDE RECORDS SUMMARY | 2019-02-14 12:51 | XMS REPORT ---
Author Author Sejal Pacheco Organization [employer] Address Unknown Phone Unavailable Care Team Providers Care Grocery Store Associate Name Role Phone Sejal Pacheco CP Unavailable Allergies, Adverse Reactions, Alerts Substance Reaction Event Type N.K.D.A. Info Not Available Non Drug Allergy Problems Problem Type Condition Code Onset Dates Condition Status Assessment ST elevation myocardial infarction (STEMI), unspecified artery I21.3 Active Problem Hypogonadism in male E29.1 Active Assessment Hyperlipidemia E78.5 Active Problem Familial hypercholesterolemia E78.01 Active Problem Impaired left ventricular relaxation I51.[address] elevation myocardial infarction (STEMI), unspecified artery I21.3 Active Problem Onychomycosis B35.1 Active Problem Erectile dysfunction N52.9 Active Problem LVH (left ventricular hypertrophy) I51.7 Active Problem Hypoglycemia E16.2 Active Medications Medication Code System Code Instructions Start Date End Date Status Dosage Rosuvastatin Calcium [facility] 38405515128 40 MG Active TAKE 1 TABLET BY MOUTH DAILY Syringe ND 93029882316 22G X 1-1/2 intramuscularly every two weeks to give testosterone Nov 12, 2015 Active use to give testosterone injection Needle (Disp) ND 14262334687 20G X 1 intramuscularly every two weeks to draw testosterone Nov 12, 2015 Active as directed Valtrex ND 66650829408 500 mg Orally three times a day (tid) May 18, 2018 Active 1 tablet Needle (Disp) NDC 0 18G X 1 intramuscularly every 2 weeks May 21, 2018 Active use to draw testosterone Testosterone Cypionate ND 20038579891 200 MG/ML Intramuscular every two weeks Nov 12, 2015 Active 1 ml Vital Signs Date/Time: December 06, 2018 BMI 30.79 Index Weight 253 lbs Height 76 in Cardiac Monitoring Heart Rate 60 /min Blood Pressure Diastolic 78 mm Hg Blood Pressure Systolic 120 mm Hg Results No Known Results Summary Purpose eClinicalWorks Submission
--- OUTSIDE RECORDS SUMMARY | 2019-02-14 12:51 | XMS REPORT ---
Author Author Geeta Romero Organization [employer] Address Unknown Phone Unavailable Care Team Providers Care Tank Carpenter Name Role Phone Geeta Romero CP Unavailable Allergies No Known Allergies Problems Problem Type Condition Code Onset Dates Condition Status Problem Erectile dysfunction N52.9 Active Problem Onychomycosis B35.1 Active Assessment Encounter for screening fecal occult blood testing Z12.[address] elevation myocardial infarction (STEMI), unspecified artery I21.3 Active Problem LVH (left ventricular hypertrophy) I51.7 Active Problem Hyperlipidemia E78.5 Active Problem Hypoglycemia E16.2 Active Problem Hypogonadism in male E29.1 Active Problem Impaired left ventricular relaxation I51.9 Active Problem Familial hypercholesterolemia E78.01 Active Medications Medication Code System Code Instructions Start Date End Date Status Dosage Ondansetron [facility] 45917278064 8 MG Orally Twice a day January 29, 2019 Active 1 tablet on the tongue and allow to dissolve Rosuvastatin Calcium [facility] 94402497757 40 MG Active TAKE 1 TABLET BY MOUTH DAILY Aspirin [facility] 85305839875 81 MG Orally Once a day Active 1 tablet Brilinta [facility] [address]-82 Orally Twice a day Active 1 tablet Results Name Result Date Reference Range Unit Abnormality Flag HEMOCCULT CARD ----Result: positive [id number] Summary Purpose eClinicalWorks Submission
--- OUTSIDE RECORDS SUMMARY | 2019-02-14 12:51 | XMS REPORT ---
Author Author Clau Fields [facility] eClinicalWorks Address Unknown Phone Unavailable Care Team Providers Care Facility Service Associate Name Role Phone Clau Fields CP Unavailable Allergies No Known Allergies Problems Problem Type Condition Code Onset Dates Condition Status Problem Erectile dysfunction N52.9 Active Assessment Erectile dysfunction N52.9 Active Problem Mixed hyperlipidemia E78.2 Active Problem Elevated blood pressure reading R03.0 Active Problem Hypoglycemia E16.2 Active Problem Onychomycosis B35.1 Active Problem Hypogonadism in male E29.1 Active Problem Elevated liver enzymes R74.8 Active Problem Hyperlipidemia E78.5 Active Medications Medication Code System Code Instructions Start Date End Date Status Dosage Viagra [facility] [address]-36 100 MG Orally Once a day prn January 04, 2017 February 03, 2017 Inactive 1 tablet as needed Cialis [facility] [address]-04 20 MG Orally once a day prn January 09, 2017 February 08, 2017 Active 1 tablet Results No Known Results Summary Purpose eClinicalWorks Submission
--- OUTSIDE RECORDS SUMMARY | 2019-02-14 12:51 | XMS REPORT ---
Author Author Clau Fields [facility] eClinicalWorks Address Unknown Phone Unavailable Care Team Providers Care Stone Planer Name Role Phone Clau Fields Unavailable Allergies, Adverse Reactions, Alerts Substance Reaction Event Type N.K.D.A. Info Not Available Non Drug Allergy Problems Problem Type Condition Code Onset Dates Condition Status Assessment Erectile dysfunction N52.9 Active Problem Erectile dysfunction N52.9 Active Assessment Encntr for general adult medical exam w/o abnormal findings Z00.00 Active Problem Mixed hyperlipidemia E78.2 Active Problem Elevated blood pressure reading R03.0 Active Problem Hypoglycemia E16.2 Active Problem Onychomycosis B35.1 Active Problem Hypogonadism in male E29.1 Active Problem Elevated liver enzymes R74.8 Active Problem Hyperlipidemia E78.5 Active Assessment Elevated blood pressure reading R03.0 Active Assessment Mixed hyperlipidemia E78.2 Active Assessment Hypogonadism in male E29.1 Active Medications Medication Code System Code Instructions Start Date End Date Status Dosage Needle (Disp) [facility] 8080-918021 20G X 1 intramuscularly every two weeks to draw testosterone Nov 12, 2015 Active as directed NO OTC meds taken [facility] [address] In Vitro Active not defined Viagra [facility] [address]-64 100 MG Orally Once a day prn January 04, 2017 February 03, 2017 Active 1 tablet as needed Crestor [facility] [address]-16 20 MG Orally Once a day (MUST SEE DOCTOR BEFORE NEXT REFILL) January 02, 2017 Active 1 tablet Syringe [facility] 8287-374721 22G X 1-1/2 intramuscularly every two weeks to give testosterone Nov 12, 2015 Active as directed Testosterone Cypionate [facility] [address]-14 200 MG/ML Intramuscular every two weeks Nov 12, 2015 Active 1 ml Vital Signs Date/Time: January 04, 2017 BMI 30.31 Index Weight 249 lbs Height 76 in Cardiac Monitoring Heart Rate 64 /min Blood Pressure Diastolic 94 mm Hg Blood Pressure Systolic 130 mm Hg Results No Known Results Summary Purpose eClinicalWorks Submission
--- OUTSIDE RECORDS SUMMARY | 2019-02-14 12:51 | XMS REPORT ---
Author Author Keyla Bauer [facility] eClinicalWorks Address Unknown Phone Unavailable Care Team Providers Care Swaging Machine Operator Name Role Phone Keyla Bauer CP Unavailable Encounters Encounter Location Date Unknown [facility] Nov 13, 2015 fu on labs [facility] Nov 12, 2015 Problems Problem Type Condition ICD-9 Code Onset Dates Condition Status Problem Hyperlipidemia E78.5 Active Problem Onychomycosis B35.1 Active Problem Elevated liver enzymes R74.8 Active Problem Hypoglycemia 251.2 Active Problem Elevated ALT measurement 790.4 Active Problem Hypogonadism in male E29.1 Active Problem Erectile dysfunction N52.9 Active Social History Social History Element Qualifiers Date Reported 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 never Nov 12, 2015 Tobacco Use: . Are you a: never smoker Nov 12, 2015 Flu Vaccine: . 2013Nov 12, 2015 Use of recreational / street drugs? . Answer: No Nov 12, 2015 Do you have pets? . Status: Yes, Type: dog(s) Nov 12, 2015 Ethnicity . Status , Is latvian your primary language? Yes Nov 12, 2015 Marital Status: . Keeley Mel Nov 12, 2015 Caffeine intake? . Status: No Nov 12, 2015 Do you exercise? . Answer: Yes, Type: cardio, running basketball Nov 12, 2015 Depression Screening: . negative Nov 12, 2015 Do you drink alcohol? . Status: Yes, Type: Socially Nov 12, 2015 Summary Purpose eClinicalWorks Submission
--- OUTSIDE RECORDS SUMMARY | 2019-02-14 12:51 | XMS REPORT ---
Author Author Sarah Beth Prieto Organization eClinicalWorks Address Unknown Phone Unavailable Care Team Providers Care Cupola Patcher Helper Name Role Phone Sarah Beth Prieto CP Unavailable Allergies No Known Allergies Problems [...] Date End Date Status Dosage Rosuvastatin Calcium [facility] 59091094506 40 mg orally qd LAST REFILL, MUST SEE DOCTOR Active 1 tablet Results No Known Results Summary Purpose eClinicalWorks Submission
--- OUTSIDE RECORDS SUMMARY | 2019-02-14 12:51 | XMS REPORT ---
Author Author Clau Fields Organization eClinicalWorks Address Unknown Phone Unavailable Care Team Providers Care Tour Sales Representative Name Role Phone Clau Fields CP Unavailable Allergies No Known Allergies Problems Problem Type Condition Code Onset Dates Condition Status Assessment Hyperlipidemia E78.5 Active Problem Erectile dysfunction N52.9 Active Assessment Hypogonadism in male E29.1 Active Problem Mixed hyperlipidemia E78.2 Active Problem Elevated blood pressure reading R03.0 Active Problem Hypoglycemia E16.2 Active Problem Onychomycosis B35.1 Active Problem Hypogonadism in male E29.1 Active Problem Elevated liver enzymes R74.8 Active Problem Hyperlipidemia E78.5 Active Medications Medication Code System Code Instructions Start Date End Date Status Dosage Testosterone Cypionate [facility] [address]-60 200 MG/ML Intramuscular every two weeks Nov 12, 2015 Active [address] [facility] [address]-26 40 MG Orally Once a day January 10, 2017 Active 1 tablet Needle (Disp) [facility] 8080-872119 20G X 1 intramuscularly every two weeks to draw testosterone Nov 12, 2015 Active as directed Syringe [facility] 5387-917462 22G X 1-1/2 intramuscularly every two weeks to give testosterone Nov 12, 2015 Active as directed Results No Known Results Summary Purpose eClinicalWorks Submission
--- OUTSIDE RECORDS SUMMARY | 2019-02-14 12:51 | XMS REPORT ---
Author Author Keyla Bauer [facility] eClinicalWorks Address Unknown Phone Unavailable Care Team Providers Care Collar Worker Name Role Phone Keyla Bauer Unavailable Encounters Encounter Location Date 3 MONTH FOLLOW UP [facility] February 24, 2016 Unknown [facility] March 02, 2016 Drug Change [facility] March 03, 2016 BLOOD WORK [facility] March 03, 2016 Unknown [facility] Nov 13, 2015 fu on labs [facility] Nov 12, 2015 [place] [facility] Nov 13, 2015 Problems Problem Type Condition ICD-9 Code Onset Dates Condition Status Problem Hyperlipidemia E78.5 Active Problem Onychomycosis B35.1 Active Problem Elevated liver enzymes R74.8 Active Problem Hypoglycemia 251.2 Active Problem Elevated ALT measurement 790.4 Active Problem Hypogonadism in male E29.1 Active Problem Erectile dysfunction N52.9 Active Medications Medication Code System Code Instructions Start Date End Date Status Dos[facility] [address]-20 8 % Externally Once a day February 24, 2016 May 24, 2016 Inactive 1 drop to affected area Lamisil [facility] [address]-40 250 MG Orally Once a day March 03, 2016 May 26, 2016 Active 1 tablet Social History Social History Element Qualifiers Date Reported 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 Status , Is belarusian your primary language? Yes February 24, 2016 [...]
--- OUTSIDE RECORDS SUMMARY | 2019-02-14 12:51 | XMS REPORT ---
Author Author Geeta Romero [facility] eClinicalWorks Address Unknown Phone Unavailable Care Team Providers Care Monogram Technician Name Role Phone Geeta Romero CP Unavailable [...]
--- OUTSIDE RECORDS SUMMARY | 2019-02-14 12:51 | XMS REPORT ---
Author Author Smith Carr [facility] eClinicalWorks Address Unknown Phone Unavailable Care Team Providers Care Vocal Music Teacher Name Role Phone Smith Carr Unavailable Allergies No Known Allergies Problems Problem [...]
--- OUTSIDE RECORDS SUMMARY | 2019-02-14 12:51 | XMS REPORT ---
Author Author Geeta Romero Organization eClinicalWorks Address Unknown Phone Unavailable Care Team Providers Care Pig Machine Operator Helper Name Role Phone Geeta Romero CP Unavailable Allergies No Known Allergies Problems Problem Type Condition Code Onset Dates Condition Status Assessment Herpes simplex B00.9 Active Problem Impaired left ventricular relaxation I51.9 Active Problem Familial hypercholesterolemia E78.01 Active Problem LVH (left ventricular hypertrophy) I51.7 Active Problem Erectile dysfunction N52.9 Active Problem Hypogonadism in male E29.1 Active Problem Hypoglycemia E16.2 Active Problem Onychomycosis B35.1 Active Medications Medication Code System Code Instructions Start Date End Date Status Dosage Valtrex [facility] [id number] 500 mg Orally three times a day (tid) May 18, 2018 Active 1 tablet Results No Known Results Summary Purpose eClinicalWorks Submission
--- OUTSIDE RECORDS SUMMARY | 2019-02-14 12:51 | XMS REPORT ---
Author Author Keyla Bauer [facility] eClinicalWorks Address Unknown Phone Unavailable Care Team Providers Care Lathe Hand Name Role Phone Keyla Bauer Unavailable Encounters Encounter Location Date 3 MONTH FOLLOW UP [facility] February 24, 2016 Unknown [facility] March 02, 2016 Drug Change [facility] March 03, 2016 BLOOD WORK [facility] March 03, 2016 Unknown [facility] Nov 13, 2015 fu on labs [facility] Nov 12, 2015 PA [facility] Nov 13, 2015 Unknown [facility] March 10, 2016 Refill [facility] May 16, 2016 Problems Problem Type Condition ICD-9 Code [...] 24, 2016 Ethnicity . Status , Is icelandic your primary language? Yes February 24, 2016 Marital Status: . Keeley Mel February 24, 2016 Caffeine intake? . Status: No February 24, 2016 Do you exercise? . Answer: Yes, Type: cardio, running basketball February 24, 2016 Depression Screening: . negative February 24, 2016 Do you drink alcohol? . Status: Yes, Type: Socially February 24, 2016 Summary Purpose eClinicalWorks Submission
--- OUTSIDE RECORDS SUMMARY | 2019-02-14 12:51 | XMS REPORT ---
Author Author Keyla Bauer [facility] eClinicalWorks Address Unknown Phone Unavailable Care Team Providers Care Surveyor Rod Helper Name Role Phone Keyla Bauer Unavailable Encounters Encounter Location Date 3 MONTH FOLLOW UP [facility] February 24, 2016 Unknown [facility] March 02, 2016 Drug Change [facility] March 03, 2016 BLOOD WORK [facility] March 03, 2016 Unknown [facility] Nov 13, 2015 fu on labs [facility] Nov 12, 2015 PA [facility] Nov [...] Date End Date Status Dosage Needle (Disp) [facility] 8080-050240 20G X 1 intramuscularly every two weeks to draw testosterone Nov 12, 2015 Active as directed Naproxen [facility] [address]-38 375 MG Orally Twice a day February 24, 2016 March 25, 2016 Active 1 tablet Testosterone Cypionate [facility] [address]-50 200 MG/ML Intramuscular every two weeks Nov 12, 2015 Active 1 ml Syringe [facility] 8287-669316 22G X 1-1/2 intramuscularly every two weeks to give testosterone Nov 12, 2015 Active as directed Lamisil [facility] [address]-73 250 MG Orally Once a day March 03, 2016 May 26, 2016 Active 1 tablet Crestor [facility] [address]-56 20 mg Orally Once a day January 23, 2015 Active 1 tablet NO OTC meds taken [facility] [address] In Vitro Active Unknown Social History Social History Element Qualifiers Date Reported 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 [...] 24, 2016 Ethnicity . Status , Is turkish your primary language? Yes February 24, 2016 [...]
--- OUTSIDE RECORDS SUMMARY | 2019-02-14 12:51 | XMS REPORT | Summary of Care ---
Author Organization Unknown Address Unknown Phone Unavailable Encounter [facility](DILMA) [id number] Date(s): 03/19/15 - 03/19/15 [facility] [address] [place] [address]- Discharge Disposition: Home Physician Attending: Jac Llanes MD Physician_Referring: Jac Llanes MD Vital Signs 1 2 3 Most recent to oldest [Reference Range]: 195.58 cm (03/19/15 8:08 AM) Height 98 DegF (03/16/15 5:13 PM) Temperature Oral [96.4-99.1 DegF] 128/97 mmHg (03/19/15 10:00 AM) 126/82 mmHg (03/19/15 9:45 AM) 127/84 mmHg (03/19/15 9:30 AM) Blood Pressure [90-140/60-90 mmHg] 1 BRMIN *LOW* (03/19/15 9:30 AM) 7 BRMIN *LOW* (03/19/15 9:15 AM) 14 BRMIN (03/19/15 9:00 AM) Respiratory Rate [14-20 BRMIN] 65 bpm (03/19/15 6:15 AM) 70 bpm (03/16/15 5:13 PM) Peripheral Pulse Rate [60-100 bpm] 109.091 kg (03/19/15 8:08 AM) Weight 28.52 m2 (03/19/15 8:08 AM) Body Mass Index Problem List Condition Effective Dates Status Health Status Informant Tumor Active finding(Confirmed) Allergies, Adverse Reactions, Alerts Substance Reaction Severity Status NKDA Active Medications acetaminophen 1,000 mg, Route: IVPB, Drug form: INJ, ONCE, Dosing Weight 109.091, kg, PRN Pain Score 1-3, Start date: 03/19/15 9:07:00, Duration: 1 doses or times, Stop date: Limited # of times Start Date: 03/19/15 Stop Date: 03/19/15 Status: Discontinued fentaNYL 25 microgram, Route: IVP, Q5Min, Dosing Weight 109.091, kg, PRN Pain Score 4-6, Start date: 03/19/15 9:07:00, Duration: 4 doses or times, Stop date: Limited # o f times Start Date: 03/19/15 Stop Date: 03/19/15 Status: Discontinued flumazenil 0.2 mg, Route: IVP, PRN, Dosing Weight 109.091, kg, PRN Benzodiazepine Reversal, Initial dose, Start date: 03/19/15 9:07:00, Duration: 30 day, Stop date: 9:06:00 Start Date: 03/19/15 Stop Date: 03/19/15 Status: Discontinued hydromorphone 0.5 mg, Route: IVP, Q5Min, Dosing Weight 109.091, kg, PRN Pain Score 7-10, Start date: 03/19/15 9:07:00, Duration: 4 doses or times, Stop date: Limited # of demario es Start Date: 03/19/15 Stop Date: 03/19/15 Status: Discontinued Lactated Ringers Injection IV 1000 mL 1,000 mL, Rate: 25 ml/hr, Infuse over: 40 hr, Route: IV, Dosing Weight 104.545 k g, Total Volume: 1,000, Start date: 03/19/15 8:01:00, Duration: 30 day, Stop suzan e: 04/18/15 8:00:00 Start Date: 03/19/15 Stop Date: 03/19/15 Status: Discontinued Lipitor 20 mg oral tablet 20 mg=1 tab, PO, Bedtime, # 90 tab, 0 Refill(s) Start Date: 03/16/15 Status: Ordered meperidine 12.5 mg, Route: IVP, Q30Min, Dosing Weight 109.091, kg, PRN Other -See Comment, For shivering, Start date: 03/19/15 9:07:00, Duration: 2 doses or times, Stop da te: Limited # of times Start Date: 03/19/15 Stop Date: 03/19/15 Status: Discontinued naloxone 0.04 mg, Route: IVP, Q2MIN, Dosing Weight 109.091, kg, PRN Narcotic Reversal, St art date: 03/19/15 9:07:00, Duration: 8 doses or times, Stop date: Limited # of times Start Date: 03/19/15 Stop Date: 03/19/15 Status: Discontinued Butte 5/325 oral tablet 1 tab, Route: PO, Drug Form: TAB, Dosing Weight 104.545, kg, Q4H, PRN Pain, Star t date: 03/19/15 9:07:00, Duration: 30 day, Stop date: 04/18/15 9:06:00 Start Date: 03/19/15 Stop Date: 03/19/15 Status: Discontinued ondansetron 4 mg, Route: IVP, ONCE, Dosing Weight 109.091, kg, PRN Nausea & Vomiting, Start date: 03/19/15 9:07:00 Start Date: 03/19/15 Stop Date: 03/19/15 Status: Discontinued Results No data available for this section Immunizations No data available for this section Procedures Procedure Date Related Diagnosis Body Site Operation1 1repair fractured nose Social History Social History Type Response Alcohol Current, Type Beer, Liquor. Frequency: 1-2 times per week. Smoking Status Never smoker; Exposure to Tobacco Smoke None; Cigarette Smoking Last 365 Days No; Reg Smoking Cessation Counseling No Assessment and Plan No data available for this section
--- OUTSIDE RECORDS SUMMARY | 2019-02-14 12:51 | XMS REPORT ---
Author Author Keyla Bauer [facility] eClinicalWorks Address Unknown Phone Unavailable Care Team Providers Care Sports Nutritionist Name Role Phone Keyla Bauer CP Unavailable Encounters Encounter Location Date Unknown [facility] Nov 13, 2015 fu on labs [facility] Nov 12, 2015 [place] [facility] Nov [...] 12, 2015 Ethnicity . Status , Is welsh your primary language? Yes Nov 12, 2015 Marital Status: . Keeley Leal Nov 12, 2015 Caffeine intake? . Status: No Nov 12, 2015 Do you exercise? . Answer: Yes, Type: cardio, running basketball Nov 12, 2015 Depression Screening: . negative Nov 12, 2015 Do you drink alcohol? . Status: Yes, Type: Socially Nov 12, 2015 Summary Purpose eClinicalWorks Submission
--- OUTSIDE RECORDS SUMMARY | 2019-02-14 12:51 | XMS REPORT ---
Author Author Clau Fields Organization eClinicalWorks Address Unknown Phone Unavailable Care Team Providers Care Fast Food Shift Supervisor Name Role Phone Clau Fields CP Unavailable Allergies No Known Allergies Problems Problem Type Condition Code Onset Dates Condition Status Problem Erectile dysfunction N52.9 Active Assessment Hyperlipidemia E78.5 Active Problem Mixed hyperlipidemia E78.2 Active Problem Elevated blood pressure reading R03.0 Active Problem Hypoglycemia E16.2 Active Problem Onychomycosis B35.1 Active Problem Hypogonadism in male E29.1 Active Problem Elevated liver enzymes R74.8 Active Problem Hyperlipidemia E78.5 Active Medications Medication Code System Code Instructions Start Date End Date Status Dosage Pravastatin Sodium [facility] [address]-15 40 MG Orally Once a day(MUST SEE BEFORE NEXT REFILL) Jun 19, 2017 Active 1 tablet Crestor [facility] [address]-62 40 MG Orally Once a day January 10, 2017 Inactive 1 tablet Results No Known Results Summary Purpose VoolgoinicalWorks Submission
--- OUTSIDE RECORDS SUMMARY | 2019-02-14 12:51 | XMS REPORT ---
Author Author Sarah Beth Prieto Organization eClinicalWorks Address Unknown Phone Unavailable Care Team Providers Care Advanced Practice Nurse Psychotherapist Name Role Phone Sarah Beth Prieto CP Unavailable Allergies No Known Allergies Problems Problem Type Condition Code Onset Dates Condition Status Problem Erectile dysfunction N52.9 Active Problem Mixed hyperlipidemia E78.2 Active Problem Elevated blood pressure reading R03.0 Active Problem Hypoglycemia E16.2 Active Problem Onychomycosis B35.1 Active Problem Hypogonadism in male E29.1 Active Problem Elevated liver enzymes R74.8 Active Problem Hyperlipidemia E78.5 Active Medications No Known Medications Results No Known Results Summary Purpose eClinicalWorks Submission
--- OUTSIDE RECORDS SUMMARY | 2019-02-14 12:51 | XMS REPORT ---
Author Author Sarah Beth Prieto Organization eClinicalWorks Address Unknown Phone Unavailable Care Team Providers Care Student Life Vice President Name Role Phone Sarah Beth Prieto CP [...] Date End Date Status Dosage Rosuvastatin Calcium [facility] 48677604228 40 mg Orally Once a day Jun 28, 2017 Active 1 tablet Results No Known Results Summary Purpose eClinicalWorks Submission
--- OUTSIDE RECORDS SUMMARY | 2019-02-14 12:51 | XMS REPORT ---
Author Author Keyla Bauer [facility] eClinicalWorks Address Unknown Phone Unavailable Care Team Providers Care Radio Presenter Name Role Phone Keyla Bauer CP Unavailable Allergies, Adverse Reactions, Alerts Substance Reaction Event Type N.K.D.A. Info Not Available Non Drug Allergy Encounters Encounter Location Date Unknown [facility] Nov 13, 2015 fu on labs [facility] Nov 12, 2015 Problems Problem Type Condition ICD-9 Code Onset Dates Condition Status Assessment Elevated liver enzymes R74.8 Active Assessment Hypogonadism in male E29.1 Active Assessment Hyperlipidemia E78.5 Active Assessment Overweight (BMI 25.0-29.9) E66.3 Active Assessment BMI 29.0-29.9,adult Z68.29 Active Problem Hyperlipidemia E78.5 Active Problem Onychomycosis B35.1 Active Problem Elevated liver enzymes R74.8 Active Problem Hypoglycemia 251.2 Active Problem Elevated ALT measurement 790.4 Active Problem Hypogonadism in male E29.1 Active Problem Erectile dysfunction N52.9 Active Medications Medication Code System Code Instructions Start Date End Date Status Dosage Syringe [facility] 8287-379151 22G X 1-1/2" 3 ML intramuscularly every two weeks to give testosterone Nov 12, 2015 Active as directed Needle (Disp) [facility] 8080-013326 20G X 1" intramuscularly every two weeks to draw testosterone Nov 12, 2015 Active as directed Crestor [facility] [address]-44 20 mg Orally Once a day January 23, 2015 Active 1 tablet Ciclopirox [facility] [address]-79 8 % Externally Once a day Nov 10, 2015 February 08, 2016 Active 1 drop to affected area Viagra [facility] [address]-78 50 mg Orally Once a day Nov 10, 2015 December 10, 2015 Active 1 tablet as needed [facility] [address] In Vitro Active Unknown Testosterone Cypionate [facility] [address]-97 200 MG/ML Intramuscular every two weeks Nov 12, 2015 Active 1 ml Social History Social History Element Qualifiers Date [...] 12, 2015 Ethnicity . Status , Is japanese your primary language? Yes Nov 12, 2015 Marital Status: . Keeley [facility] Nov 12, 2015 Caffeine intake? . Status: No Nov 12, 2015 Do you exercise? . Answer: Yes, Type: cardio, running basketball Nov 12, 2015 Depression Screening: . negative Nov 12, 2015 Do you drink alcohol? . Status: Yes, Type: Socially Nov 12, 2015 Vital Signs Date/Time: Nov 12, 2015 Weight 243 lbs Height 76 in Cardiac Monitoring Heart Rate 66 /min Blood Pressure Diastolic 82 mm Hg Blood Pressure Systolic 122 mm Hg Summary Purpose eClinicalWorks Submission
--- OUTSIDE RECORDS SUMMARY | 2019-02-14 12:51 | XMS REPORT ---
Author Author Geeta Romero Organization eClinicalWorks Address Unknown Phone Unavailable Care Team Providers Care Dtp Operator Name Role Phone Geeta Romero CP Unavailable [...] Start Date End Date Status Dosage Syringe [facility] 53845097101 22G X 1-1/2 intramuscularly every two weeks to give testosterone Nov 12, 2015 Active as directed Rosuvastatin Calcium [facility] 08886013512 40 MG Orally Once a day Jun 28, 2017 Active 1 tablet Testosterone Cypionate [facility] 86735188538 200 MG/ML Intramuscular every two weeks Nov 12, 2015 Active 1 ml Pravastatin Sodium [facility] 61931247915 40 MG Orally Once a day(MUST SEE BEFORE NEXT REFILL) Jun 19, 2017 Inactive 1 tablet Needle (Disp) [facility] 68665068599 20G X 1 intramuscularly every two weeks to draw testosterone Nov 12, 2015 Active as directed Ezetimibe [facility] 47488724249 10 MG Orally Once a day Jun 28, 2017 Active 1 tablet Sildenafil Citrate [facility] [address]-94 50 MG Orally Once a day Jun 23, 2017 Jul 23, 2017 Active 1 tablet as needed Vital Signs Date/Time: Jun 28, 2017 BMI 29.94 Index Weight 246 lbs Height 76 in Cardiac Monitoring Heart Rate 68 /min Blood Pressure Diastolic 70 mm Hg Blood Pressure Systolic 120 mm Hg Results No Known Results Summary Purpose eClinicalWorks Submission
--- OUTSIDE RECORDS SUMMARY | 2019-02-14 12:51 | XMS REPORT ---
Author Author Keyla Bauer [facility] eClinicalWorks Address Unknown Phone Unavailable Care Team Providers Care Photographic Laboratory Technician Name Role Phone Keyla Bauer Unavailable Allergies, Adverse Reactions, Alerts Substance Reaction Event Type N.K.D.A. Info Not Available Non Drug Allergy Encounters Encounter Location Date 3 MONTH FOLLOW UP [facility] February 24, 2016 Unknown [facility] Nov 13, 2015 fu on labs [facility] Nov 12, 2015 [facility] Nov 13, 2015 Problems Problem Type Condition ICD-9 Code Onset Dates Condition Status Assessment Hypogonadism in male E29.1 Active Assessment Elevated liver enzymes R74.8 Active Assessment Erectile dysfunction N52.9 Active Problem Hyperlipidemia E78.5 Active Problem Onychomycosis B35.1 Active Problem Elevated liver enzymes R74.8 Active Problem Hypoglycemia 251.2 Active Problem Elevated ALT measurement 790.4 Active Problem Hypogonadism in male E29.1 Active Problem Erectile dysfunction N52.9 Active Assessment OM (onychomycosis) B35.1 Active Assessment Pain in Achilles tendon M76.60 Active Assessment Hyperlipidemia E78.5 Active Medications Medication Code System Code Instructions Start Date End Date Status Dosage Crestor MEDISPAN [address]-86 20 mg Orally Once a day January 23, 2015 Active 1 tablet NO OTC meds taken MEDISPAN 30625-27941 In Vitro Active Unknown Needle (Disp) MEDISPAN 3280129492 20G X 1 intramuscularly every two weeks to draw testosterone Nov 12, 2015 Active as directed Ciclopirox MEDISPAN [address]-10 8 % Externally Once a day Nov 10, 2015 February 08, 2016 Active 1 drop to affected area Syringe MEDISPAN 2187-804359 22G X 1-1/2 intramuscularly every two weeks to give testosterone Nov 12, 2015 Active as directed Ciclopirox MEDISPAN [address]-20 8 % Externally Once a day February 24, 2016 May 24, 2016 Active 1 drop to affected area [facility] [address]-35 375 MG Orally Twice a day February 24, 2016 March 25, 2016 Active 1 tablet Testosterone Cypionate [facility] [address]-87 200 MG/ML Intramuscular every two weeks Nov [...] 24, 2016 Ethnicity . Status , Is arabic your primary language? Yes February 24, 2016 Marital Status: . Keeley Leal February 24, 2016 Caffeine intake? . Status: No February 24, 2016 Do you exercise? . Answer: Yes, Type: cardio, running basketball February 24, 2016 Depression Screening: . negative February 24, 2016 Do you drink alcohol? . Status: Yes, Type: Socially February 24, 2016 Family history Qualifier Description Comment Date Reported Maternal Grandmother hypertension February 24, 2016 Paternal Grandmother alive hypertension February 24, 2016 Siblings Comment not available February 24, 2016 Maternal Grandfather Comment not available February 24, 2016 Children Comment not available February 24, 2016 Father prostate cancer, stroke, heart attack February 24, 2016 Paternal Grandfather Comment not available February 24, 2016 Mother alive hypertension February 24, 2016 Other: Comment not available February 24, 2016 Vital Signs Date/Time: February 24, 2016 Weight 241 lbs Height 76 in Cardiac Monitoring Heart Rate 64 /min Blood Pressure Diastolic 80 mm Hg Blood Pressure Systolic 120 mm Hg Summary Purpose eClinicalWorks Submission
--- OUTSIDE RECORDS SUMMARY | 2019-02-14 12:51 | XMS REPORT ---
Author Author Sarah Beth Prieto [facility] eClinicalWorks Address Unknown Phone Unavailable Care Team Providers Care Electronic Semiconductor Processor Name Role Phone Sarah Beth Prieto CP Unavailable Encounters Encounter Location Date 3 MONTH FOLLOW UP [facility] February 24, 2016 Unknown [facility] March 02, 2016 Drug Change [facility] March 03, 2016 BLOOD WORK [facility] March 03, 2016 Unknown [facility] Nov 13, 2015 fu on labs [facility] Nov 12, 2015 PA [facility] Nov 13, 2015 Unknown [facility] Nov 02, 2016 Unknown [facility] March 10, 2016 Refill [facility] May 16, 2016 [...] Start Date End Date Status Dosage Valtrex MEDISPAN [address]-40 1 GM Orally every 12 hrs as needed Nov 02, 2016 Nov 03, 2016 Active 2 tablets Social History Social History Element Qualifiers Date [...] 24, 2016 Ethnicity . Status , Is eritrean your primary language? Yes February 24, 2016 [...]
--- OUTSIDE RECORDS SUMMARY | 2019-02-14 12:52 | XMS REPORT ---
Author Author Clau Fields Organization eClinicalWorks Address Unknown Phone Unavailable Care Team Providers Care Mine Utility Operator Name Role Phone Clau Fields CP Unavailable Allergies No Known Allergies Problems Problem Type Condition Code Onset Dates Condition Status Problem Erectile dysfunction N52.9 Active Assessment Abnormal EKG R94.31 Active Problem Mixed hyperlipidemia E78.2 Active Problem Elevated blood pressure reading R03.0 Active Problem Hypoglycemia E16.2 Active Problem Onychomycosis B35.1 Active Problem Hypogonadism in male E29.1 Active Problem Elevated liver enzymes R74.8 Active Problem Hyperlipidemia E78.5 Active Medications Medication Code System Code Instructions Start Date End Date Status Dosage Cialis [facility] [address]-82 20 MG Orally once a day prn January 09, 2017 February 08, 2017 Active 1 tablet Syringe [facility] 8287-425214 22G X 1-1/2 intramuscularly every two weeks to give testosterone Nov 12, 2015 Active as directed Testosterone Cypionate [facility] [address]-19 200 MG/ML Intramuscular every two weeks Nov 12, 2015 Active 1 ml Crestor [facility] [address]-18 40 MG Orally Once a day January 10, 2017 Active 1 tablet Needle (Disp) [facility] 8080-407872 20G X 1 intramuscularly every two weeks to draw testosterone Nov 12, 2015 Active as directed Results No Known Results Summary Purpose eClinicalWorks Submission
--- OUTSIDE RECORDS SUMMARY | 2019-02-14 12:52 | XMS REPORT ---
Author Author Clau Fields [facility] eClinicalWorks Address Unknown Phone Unavailable Care Team Providers Care Audio Tape Librarian Name Role Phone Clau Fields CP Unavailable [...]
--- OUTSIDE RECORDS SUMMARY | 2019-02-14 12:52 | XMS REPORT ---
Author Author Clau Fields Organization eClinicalWorks Address Unknown Phone Unavailable Care Team Providers Care Spiritual Minister Name Role Phone Clau Fields CP Unavailable Allergies, Adverse Reactions, Alerts Substance Reaction Event Type N.K.D.A. Info Not Available Non Drug Allergy Problems Problem Type Condition Code Onset Dates Condition Status Assessment Elevated blood pressure reading R03.0 Active Problem Erectile dysfunction N52.9 Active Assessment Hypogonadism in male E29.1 Active Assessment Abnormal EKG R94.31 Active Assessment Hyperlipidemia E78.5 Active Problem Mixed hyperlipidemia E78.2 Active Problem Elevated blood pressure reading R03.0 Active Problem Hypoglycemia E16.2 Active Problem Onychomycosis B35.1 Active Problem Hypogonadism in male E29.1 Active Problem Elevated liver enzymes R74.8 Active Problem Hyperlipidemia E78.5 Active Medications Medication Code System Code Instructions Start Date End Date Status Dosage Testosterone Cypionate [facility] [address]-72 200 MG/ML Intramuscular every two weeks Nov 12, 2015 Active 1 ml Needle (Disp) [facility] 8080-252714 20G X 1 intramuscularly every two weeks to draw testosterone Nov 12, 2015 Active as directed Crestor [facility] [address]-81 20 MG Orally Once a day (MUST SEE DOCTOR BEFORE NEXT REFILL) January 02, 2017 Inactive 1 tablet Crestor [facility] [address]-91 40 MG Orally Once a day January 10, 2017 Active 1 tablet Syringe [facility] 8287-173734 22G X 1-1/2 intramuscularly every two weeks to give testosterone Nov 12, 2015 Active as directed Cialis [facility] [address]-63 20 MG Orally once a day prn January 09, 2017 February 08, 2017 Active 1 tablet Vital Signs Date/Time: January 10, 2017 BMI 29.94 Index Weight 246 lbs Height 76 in Cardiac Monitoring Heart Rate 71 /min Blood Pressure Diastolic 84 mm Hg Blood Pressure Systolic 128 mm Hg Results Name Result Date Reference Range Unit Abnormality Flag EKG Summary Purpose eClinicalWorks Submission
[2019-02-14 16:45] VITALS: BP 132/85
[2019-02-14 16:53] LABS: WBC,FECAL (FECAL LACTOFERRIN) POSITIVE (NEGATIVE)
--- NOTE | 2019-02-14 23:01 | Operative Report ---
DATE OF PROCEDURE: 02/14/2019 SURGEON: Iain Yoder MD PROCEDURE: Esophagogastroduodenoscopy with biopsies and colonoscopy with biopsies. INDICATIONS FOR EGD: Upper abdominal pain, history of melena. INDICATIONS FOR COLONOSCOPY: History of bright red blood per rectum, positive occult blood in stools. MEDICATIONS: The patient was done under MAC. Please see anesthesiologist's note. PROCEDURE IN DETAIL: With the patient in left lateral decubitus position, a flexible fiberoptic Olympus gastroscope was introduced into the esophagus under direct visualization without any difficulty. There was some patchy erythema noted in distal esophagus. The scope was then advanced with ease and advanced all the way to the stomach. Mucosa overlying the antrum and the body revealed some patchy erythema and [id number] edema and biopsies were obtained and sent to stain for H pylori. The pylorus was of normal contour and shape, it was intubated with ease and the scope was advanced all the way to the second portion of the duodenum. Biopsies were obtained from the proximal second portion and duodenal bulb to rule out sprue. The scope was then withdrawn back into the stomach and retroflexed mucosa overlying the fundus and cardia appeared to be within normal limits. The scope was then straightened out. The stomach was decompressed. The scope was subsequently withdrawn. The patient tolerated the procedure well. IMPRESSION: 1. Distal esophagitis. 2. Gastritis. 3. Rule out sprue. PLAN: Follow up histology. Initiate Protonix 40 mg one p.o. q.a.m. before meals. PROCEDURE IN DETAIL: The patient was then turned around after adequate lubrication of the anal canal, flexible fiberoptic Olympus colonoscope was inserted into the rectum with ease and advanced all the way to the cecum. Mucosa overlying the cecum grossly appeared to be within normal limits. There was an isolated ulcer approximately 3 mm in size in the cecum and that was biopsied. The ileocecal valve was intubated and the scope was advanced into the terminal ileum. Biopsies were obtained. The scope was then withdrawn back into the colon. There was some patchy erythema noted throughout the colon, it was more pronounced in the left colon along with low-grade to moderate edema and random biopsies were obtained. The scope was then retroflexed into the distal rectum and small internal hemorrhoids were noted, none of which was actively bleeding. The scope was then straightened out it was subsequently withdrawn after securing an adequate stool specimen that was sent for the appropriate stool studies. The patient tolerated the procedure well. IMPRESSION: 1. Cecal ulcer, biopsied. 2. Mild patchy colitis, primarily left colon. 3. Internal hemorrhoids none actively bleeding. PLAN: Follow up histology. Follow up stool studies. Initiate VSL #3 one p.o. daily. Check CRP, sedimentation rate, and IBD panel. Iain Yoder MD [facility]/MODL /[id number] cc: Sarah Beth Bernard DO
[2019-02-15 15:11] LABS: C DIFFICILE TOXIN A&B AMP PROB NEGATIVE (NEGATIVE)
== END | disposition home or self-care (01) ==
LOC: OR 12:44
PROVIDERS: ATTEND Internal Medicine Gastroenterology
DX: K29.70 Gastritis, unspecified, without bleeding (principal); K52.9 Noninfective gastroenteritis and colitis, unspecified; K63.3 Ulcer of intestine; K20.9 Esophagitis, unspecified; K64.8 Other hemorrhoids; I25.2 Old myocardial infarction; R03.0 Elevated blood-pressure reading, without diagnosis of hypertension; Z79.82 Long term (current) use of aspirin
CPT/HCPCS: 36415; 43239; 45380; 83630; 83993; 85651; 86140; 86256; 86671; 87045; 87177; 87328; 87493; J1980; J2001; J2250; J2704

== ENCOUNTER → 2019-03-27 | Outpatient (CLI) | payer OTHER, BC ==
[~2019-03-27] MED LIST changes: -FENTANYL CITRATE/PF 100MCG/2 ML INJ ONE; -HYOSCYAMINE SULFATE 0.5 MG/ML INJ ONE; -KETAMINE HCL INJ 50 MG/ML 10 ML VIAL ONE; -LIDOCAINE HCL 2% LOCAL INJ 5 ML SDV VIAL INJ ONE; -MIDAZOLAM HCL 2 MG/2 ML VIAL ONE; -PROPOFOL IV EMULSION 10 MG/ML 50 ML VIAL ONE
--- NOTE | 2019-03-27 10:08 | Diagnostic Imaging Report ---
EXAM: US ABDOMEN COMPLETE DATE: 03/27/2019 9:27 AM Time stamp on exam: INDICATION: Right upper quadrant pain COMPARISON: None TECHNIQUE: Transverse and longitudinal sheehan scale and color doppler sonographic images of the upper abdomen were obtained. FINDINGS: LIVER 13.3 cm in the right midclavicular line. Normal echogenicity, normal contour, no masses. SPLEEN 9.5 cm in maximum diameter. Normal echogenicity, no masses. GALLBLADDER No stones, sludge, wall-thickening or pericholecystic fluid. Negative sonographic Fernandez's sign. BILE DUCTS No intra nor extra-hepatic biliary dilation. Common bile duct measures 0.3 cm PANCREAS: Neck and proximal body are unremarkable. Tail was not visualized due to bowel gas. RIGHT KIDNEY: 10.9 cm Echogenicity: Normal Collecting System: No hydronephrosis Stones: None Cyst/Mass: None LEFT KIDNEY: 12 cm Echogenicity: Normal Collecting System: No hydronephrosis Stones: None Cyst/Mass: None VESSELS: Aorta: Nonaneurysmal Inferior Vena Cava: Patent Main Portal Vein: 0.8 cm, normal size with hepatopetal flow. FREE FLUID: None IMPRESSION: Unremarkable abdominal ultrasound. Signed by: Dr. Johnathan Polanco M.D. on 03/27/2019 10:05 AM
== END ==
LOC: US 09:18
PROVIDERS: ATTEND Internal Medicine Gastroenterology
DX: R10.11 Right upper quadrant pain (principal)
CPT/HCPCS: 76700